=== PATIENT | male | born 1975 | race Caucasian/White ===

== ENCOUNTER 2023-11-25 10:28 | Emergency (ER) | payer OTHER, SELFPAY ==
[2023-11-25 10:35] VITALS: BP 139/94
[2023-11-25 10:49] VITALS: BMI 29.1
--- NOTE | 2023-11-25 11:10 | ED.GENMED ---
Addendum entered and electronically signed by Lavell Castellano Jr., PA-C 11/28/23 14:03:
The [facility] was contacted about the patient's wound culture. He was already started on Levaquin for coverage. No change required at this time.
Original Note:
History of Present Illness
General
Chief Complaint: Seizure
Time Seen by Provider: 11/25/23 10:30
Travel History
Have you had any contact with someone who has COVID-19?: No
Do you have any symptoms of coronavirus? Fever > 100 degrees, chills, cough, shortness of breath, sore throat, loss of taste or smell, muscle aches, or headache?: No
History of Present Illness
History of Present Illness:
48-year-old male presents to the emergency department for [facility] due to multiple complaints. Which is seizure-like activity that occurred while in the [facility] this morning. Incarcerated for 7 to 10 days, states
over the past 12 months he has been having increasingly frequent seizure-like events. He was admitted to [facility] in October at which time an EEG was obtained. Patient states he was discharged on a medication, does not know the name of
this, did not tolerated thus is no longer taking it. He feels as though his seizure-like events are secondary to his test within the vaccine being discontinued upon arrival to be present. He also notes abscesses to the right thigh and hip treated
with incision and drainage of the correction[facility] facility clindamycin and Bactrim
Review of Systems
Review of Systems
Allergies reviewed?: Yes
All Other Systems: ROS reviewed and negative except as documented in HPI and ROS
Phy Exam
Physical Exam
Physical Exam:
GEN: Well appearing, NAD, WDWN
Eyes: PERRLA, EOMs intact, no scleral icterus
HENT: NCAT, oral mucosa moist, no JVD, no cervical adenopathy.
Lungs: CTAB, no wheezes, rales, rhonchi, normal chest wall excursion
Cardiac: RRR, no M/R/G, no peripheral edema. Radial pulses 2+ bilat
Neuro: AO x 3, no focal deficits to BUE/BLE, normal sensation throughout
MSK: No gross deformity or ecchymosis. No edema. No digital clubbing
Skin: No rashes, petechiae. 2.5cm abscess to the right anterior lower thigh with erythema extending to the mid thigh 0.5 cm. There is similar 3 cm fluctuant abscess overlying right greater trochanter
Psych: Calm, cooperative, proper hygiene
Course
Orders/Labs/Results
Orders:
Orders
11/25/23 10:36
EKG [Electrocardiogram (*1)] Urgent
Reason for Study: Other
Other Reason for Exam: Seizures
11/25/23 10:37
EKG- Treatment ONCE
11/25/23 11:01
Complete Blood Count/With Diff Urgent
11/25/23 11:41
Comprehensive Metabolic Panel Urgent
Urinalysis Reflex To Culture Urgent
Date Specimen was Collected: 11/25/23
Time Specimen was Collected: 11:40
11/25/23 12:30
Clonazepam [Klonopin] 1 mg PO NOW STA
11/25/23 13:02
Wound Culture [Wound/Abscess/Other Culture] Urgent
ALLI Source: Abscess
Specimen Description:
Date Specimen was Collected: 11/25/23
Time Specimen was Collected: 13:01
Comment: R thigh
11/25/23 13:28
Ibuprofen [Motrin] 600 mg .ROUTE .STK-MED ONE
Ibuprofen [Motrin] 600 mg PO NOW STA
Abnormal Lab Results
11/25/23 11/25/23
11:01 11:41
MCV 77.7 L fL
(80.0-94.0)
MCH 25.8 L pg
(27.0-31.0)
Absolute Monos (auto) 0.7 H 10^3/uL
(0.1-0.6)
Lymphocytes % 16.9 L %
(20.5-51.1)
Carbon Dioxide 21 L mmol/L
(22-30)
11/25/23 11:01
11/25/23 11:41
Vital Signs
Initial and Last Documented VS:
Initial Vital Signs
Temp Pulse Resp BP Pulse Ox
99.2 F 88 18 139/94 98
11/25/23 10:35 11/25/23 10:35 11/25/23 10:35 11/25/23 10:35 11/25/23 10:35
Last Documented Vital Signs
Temp Pulse Resp BP Pulse Ox
99.2 F 88 18 139/94 96
11/25/23 10:35 11/25/23 10:35 11/25/23 10:35 11/25/23 10:35 11/25/23 10:58
Procedures
Incision/Drainage/Joint Aspiration
Multiple locations: R thigh/R hip:
Anethesia: 1% Lidocaine with Epi
Preparation: cleaned with alcohol wipe
Type of procedure: incise and drain
Nature of site: abscess
Description of abscess: greater than 3cm
Loculations broken up: Yes
How much fluid was obtained?: large amount
Fluid description: purulent
Treatment: left open for drainage
Additional information:
Linear incisions made to both the R hip and R thigh abscesses without large amount of purulent discharge
MDM/Problems Addressed
MDM/Problems Addressed:
I was able to speak with neurology at [facility] detailed the lateral objective findings and the patient's previous workups. His last EEG was unremarkable and current working diagnosis of psychogenic nonepileptic seizures. He was discharged on
Trileptal 450 mg but the patient discontinued this at the encouragement of his primary care physician due to symptoms and tolerance. At this time no indication for antiepileptic therapy. Will switch his antibiotics to doxycycline
*Critical Care Note
Total Time (30-74mins, 75-104mins- exclusive of procedures): Not Applicable
ED Attending Note
-
Portions of this chart may have been created with voice recognition software.� Occasional wrong word or��sound alike� substitutions may have occurred due to the inherent limitations of voice recognition software.
Discharge Plan
Departure
Patient Disposition: Alf
Date of Disposition: 11/25/23
Time of Disposition: 13:44
Discharge Problem:
Psychogenic nonepileptic seizure, Abscess of multiple sites
Prescriptions:
New
doxycycline monohydrate 100 mg capsule
100 mg PO BID Qty: 14 0RF
Referrals:
[facility] [Family Provider] -
Activity Restrictions/Additional Instructions:
I spoke to neurology at [facility] regarding Gigi's prior workup for seizures. At this time no new medications recommended however he should be restarted on his Pristiq if this is an option
Interventions
Interventions:
*Risk Screen - Suicide Last Done: 11/25/23 10:57
*General Assessment Last Done: 11/25/23 10:57
*Neglect/Abuse Screening Last Done: 11/25/23 10:57
ED- Fall Risk Assessment Last Done: 11/25/23 13:55
*ED COVID-19 Vaccine History Last Done: 11/25/23 10:52
*Nursing Disposition Last Done: 11/25/23 13:55
ED- Cardiac Assessment Last Done: 11/25/23 10:58
ED- Neurological Assessment Last Done: 11/25/23 10:58
ED- Pulmonary Assessment Last Done: 11/25/23 10:58
Discharge Date and Time
Discharge Date/Time: 11/25/23 13:56
Print Language: STATELESS
--- NOTE | 2023-11-25 11:15 | EDRN ---
[employer] came to get nurse stating pt is having a seizure. RN bedside to check on pt. Pt's arms are bent with fists clenched and shaking back and forth. Pt looks at nurse several times. When RN asked pt is he was having a seizure, he
answered yes. Seizure resolved without any intervention. Seizure lasted about 30 seconds in total. Glynn TALAMANTES made aware.
[2023-11-25 11:22] LABS: % Basophils 0.7 % (0-2); % Eosinophils 2.3 % (0-6); % Immature Granulocytes 0.1 % (0-0.5); % Lymphocytes 16.9 % (20.5-51.1); % Monocytes 7.8 % (1.7-9.3); % Neutrophils 72.2 % (42.2-75.2); Absolute Basophils 0.1 10^3/uL (0-0.2); Absolute Eosinophils 0.2 10^3/uL (0-0.7); Absolute Lymphocytes 1.5 10^3/uL (1.2-3.4); Absolute Monocytes 0.7 10^3/uL (0.1-0.6); Absolute Neutrophils 6.5 10^3/uL (1.4-6.5); Hematocrit 40.7 % (39.0-52.0); Hemoglobin 13.5 g/dL (13.0-18.0); Mean Corp Hgb Conc. 33.2 g/dL (33.0-37.0); Mean Corpuscular Hgb 25.8 pg (27.0-31.0); Mean Corpuscular Volume 77.7 fL (80.0-94.0); Mean Platelet Volume 9.9 fL (7.4-10.4); Nucleated Red Blood Cells % 0 % (-); Platelet Count 392 10^3/uL (130-400); Red Blood Cell Count 5.24 10^6/uL (4.70-6.10); Red Cell Dist. Width 14.5 % (11.5-14.5)
[2023-11-25 12:00] LABS: Urine Albumin Negative (Neg - Trace); Urine Bilirubin Negative (Negative); Urine Character Clear (Clear); Urine Color Yellow; Urine Glucose Negative (Negative); Urine Ketone Negative (Negative); Urine Leukocyte Negative (Negative); Urine Nitrite Negative (Negative); Urine Occult Blood Negative (Negative); Urine Specific Gravity 1.015 (<1.030); Urine Urobilinogen Negative (Neg - 1+)
[2023-11-25 12:05] LABS: ALT (SGPT) 12 U/L (0-50); AST (SGOT) 21 U/L (17-59); Albumin 3.7 g/dl (3.5-5.0); Alkaline Phosphatase 54 U/L (38-126); Blood Urea Nitrogen 18 mg/dl (9-20); Calcium 8.4 mg/dl (8.4-10.2); Carbon Dioxide 21 mmol/L (22-30); Chloride 106 mmol/L (98-107); Estimated Creatinine Clearance 101 ml/min; Glucose 83 mg/dl (70-99); Potassium 3.6 mmol/L (3.5-5.1); Sodium 136 mmol/L (135-145); Total Bilirubin 0.4 mg/dl (0.2-1.3); Total Protein 6.6 g/dl (6.3-8.2); eGFR > 60.00
[2023-11-25] MEDS: KLONOPIN 1 MG PO (12:59)
[2023-11-25] MEDS: MOTRIN 600 MG PO (13:29)
== END 2023-11-25 13:56 ==
LOC: EMR 10:28
PROVIDERS: Physician Assistant; EMERGENCY PHYSICIAN Emergency Medicine
DX: F44.5 Conversion disorder with seizures or convulsions (principal); L02.415 Cutaneous abscess of right lower limb
CPT/HCPCS: 99283; 10060; 80053; 81003; 85025; 87070; 87147; 87186; 87205; 93005